=== PATIENT | female | born 1970 | race Caucasian/White ===

== ENCOUNTER 2019-01-11 14:11 | Emergency (ER) | payer MEDICAID ==
[~2019-01-11] VITALS: Ht 167.6 cm; Wt 95.0 kg
[2019-01-11 14:52] LABS: EOS # 0.1 (0.04-0.40); HEMATOCRIT 41.3 % (37.0-47.0); HEMOGLOBIN 13.4 g/dL (12.5-16.0); LYMPH# 2.1 (1.50-4.00); MEAN CELL VOLUME 97 fl (78-100); MEAN CORPUSCULAR HEMOGLOBIN 32 pg (27-31); MEAN CORPUSCULAR HGB CONC 32 g/dL (33-37); MONO # 0.4 (0.20-0.80); NEU # 2.3 (1.40-6.50); PLATELET COUNT 272 K/mm3 (130-400); RED BLOOD COUNT 4.25 M/mm3 (4.10-5.30); RED CELL DISTRIBUTION WIDTH 13.4 % (11.5-14.5)
[2019-01-11] MEDS ORDERED: LYRICA 25MG CAP25 MG (14:52)
[2019-01-11] MEDS ORDERED: AMBIEN5 M1 (14:54)
[2019-01-11] MEDS ORDERED: BUSPIRONE5 MG (14:54)
[2019-01-11] MEDS ORDERED: PRILOSEC 20MG20 MG (14:54)
[2019-01-11] MEDS ORDERED: PROZAC10 M2 (14:54)
[2019-01-11] MEDS ORDERED: KLONOPIN 0.5MG0.5 MG (14:56)
[2019-01-11 15:04] LABS: ALBUMIN 4.5 g/dL (3.5-5.0); CALCIUM 9.2 mg/dL (8.4-10.2); POTASSIUM 4.4 mmol/L (3.6-5.0); TOTAL BILIRUBIN 0.5 mg/dL (0.2-1.3); TOTAL PROTEIN 7.5 g/dL (6.3-8.2)
[2019-01-11 15:22] LABS: URINE APPEARANCE CLEAR; URINE BILIRUBIN NEGATIVE (NEGATIVE); URINE BLOOD NEGATIVE (NEGATIVE); URINE COLOR YELLOW; URINE GLUCOSE NEGATIVE (NEGATIVE); URINE KETONE NEGATIVE (NEGATIVE); URINE LEUKOCYTE ESTERASE NEGATIVE (NEGATIVE); URINE NITRATE NEGATIVE (NEGATIVE); URINE PROTEIN(semi-quant) TRACE mg/dL (NEGATIVE); URINE UROBILINOGEN NORMAL (NORMAL); URINE WBC 0-1 /hpf (0-3)
[2019-01-11] MEDS ORDERED: PREDNISONE20 M1 PO (16:24)
[2019-01-11] MEDS ORDERED: ZITHROMAX Z PA250 MG PO (16:24)
[2019-01-11] MEDS ORDERED: FLAGYL500 M1 PO (16:24)
[2019-01-11 16:36] VITALS: BP 126/66
== END 2019-01-11 16:36 | disposition home or self-care (01) ==
LOC: ED 14:11
PROVIDERS: Physician Assistant
DX: J40 Bronchitis, not specified as acute or chronic (principal); E86.0 Dehydration; J44.9 Chronic obstructive pulmonary disease, unspecified; N76.0 Acute vaginitis; F31.9 Bipolar disorder, unspecified; F43.10 Post-traumatic stress disorder, unspecified; F17.210 Nicotine dependence, cigarettes, uncomplicated; Z90.710 Acquired absence of both cervix and uterus
CPT/HCPCS: J1885; J7030